=== PATIENT | male | born 1985 | race African-American/Black ===

== ENCOUNTER 2025-01-25 07:13 | Emergency (ER) | payer SELFPAY ==
[2025-01-25] MEDS ORDERED: Bacitracin 1 PK ONE (07:52)
[2025-01-25] MEDS ORDERED: Lidocaine 1% w/Epinephrine 1:200K 30 ML VIAL ONE (07:52)
[2025-01-25] MEDS ORDERED: HYDROcodone/Acetaminophen 10/325 mg Tablet ONE (07:52)
[2025-01-25] MEDS ORDERED: Ibuprofen 200 MG TAB ONE (07:53)
[2025-01-25] MEDS ORDERED: Sulfameth/Trimethoprim DS 800-160mg TAB ONE (07:54)
== END 2025-01-25 08:56 | disposition home or self-care (01) ==
LOC: CSHERS 07:13
DX: L02.31 Cutaneous abscess of buttock (principal); F17.210 Nicotine dependence, cigarettes, uncomplicated
CPT/HCPCS: 10060